=== PATIENT | male | born 2000 | race Caucasian/White ===

== ENCOUNTER → 2024-07-15 | Outpatient (CLI) | payer SELFPAY ==
[~2024-07-15] MED LIST: DIPH12.5EL PO; PRED15SY PO
[2024-07-15 15:49] LABS: Chlamydia Trachomatis Vaginal NOT DETECTED (NOT DETECT); Neisseria Gonorrhoea Vaginal NOT DETECTED (NOT DETECT)
== END | disposition home or self-care (01) ==
LOC: LAB SHORT 11:40 → LAB 11:40
PROVIDERS: Physician Assistant
DX: Z72.51 High risk heterosexual behavior (principal)
CPT/HCPCS: 87491; 87591

== ENCOUNTER → 2025-05-18 | Outpatient (CLI) | payer SELFPAY ==
[2025-05-20 08:49] LABS: HIV 1,2 COMBO ANTIGEN/ANTIBODY Negative (Negative)
== END ==
LOC: LAB 11:02 → LAB SHORT 11:02
PROVIDERS: Nurse Practitioner Family
DX: N34.1 Nonspecific urethritis (principal)
CPT/HCPCS: 87389